=== PATIENT | male | born 1970 | race Caucasian/White ===

== ENCOUNTER 2017-01-31 17:11 | Emergency (ER) | payer SELFPAY ==
[2017-01-31 17:52] LABS: BASOPHILS % (AUTO) 1 % (0-3); EOSINOPHILS % (AUTO) 1 % (0-9); HEMATOCRIT 39 % (39-53); MEAN CORPUSCULAR HGB CONC 35.3 gm/dl (32.0-36.0); MONOCYTES % (AUTO) 8.1 % (0-12); NEUTROPHILS % (AUTO) 57.9 % (37-80)
[2017-01-31 17:56] VITALS: RESP 18; TEMP 97
[2017-01-31 17:57] LABS: MEAN CORPUSCULAR VOLUME 80 fL (80-100)
[2017-01-31 18:16] LABS: ALBUMIN 4.2 gm/dl (3.4-5.0); CALCIUM 9.1 mg/dl (8.5-10.1); POTASSIUM 3.2 mMol/L (3.5-5.1); THYROID STIMULATING HORMONE 1.952 uIU/ml (0.358-3.740)
[2017-01-31 18:39] LABS: AMPHETAMINES POSITIVE (NEGATIVE); METHADONE NEGATIVE (NEGATIVE); OPIATES(OP13) NEGATIVE (NEGATIVE); OXYCODONE(OXY) NEGATIVE (NEGATIVE); PROPOXYPHENE(PPX) NEGATIVE (NEGATIVE); TRICYCLIC ANTIDEPRESSANTS NEGATIVE (NEGATIVE)
[2017-01-31] MEDS ORDERED: POTASSIUM CHLORIDE 10 MEQ TER PO ONE ×2 (18:54→19:05)
[2017-01-31] MEDS ORDERED: POTASSIUM CHLORIDE 10 MEQ TER ONE (18:57)
[2017-02-01] MEDS ORDERED: HALOPERIDOL LACTATE 5 MG/ML SOL IM ONE (07:19)
[2017-02-01 07:21] VITALS: BP 113/77; PULSE 80; O2SAT 100
[2017-02-01] MEDS ORDERED: HALOPERIDOL LACTATE 5 MG/ML SOL ONE (07:23)
== END 2017-02-01 08:13 | disposition home or self-care (01) | DRG 885 ==
LOC: ED 17:11
DX: F23 Brief psychotic disorder (principal); F15.188 Other stimulant abuse with other stimulant-induced disorder
CPT/HCPCS: 36415; 80053; 80305; 80307; 84443; 85025; 99285; J1630